=== PATIENT | male | born 1960 | race Caucasian/White ===

== ENCOUNTER 2023-01-03 18:43 | Emergency (ER) | payer OTHER, SELFPAY ==
[2023-01-03] VITALS (11 sets, daily range): BP systolic 144–164; BP diastolic 84–98; PULSE 77–108; RESP 16–27; TEMP 36.6–36.8; O2SAT 92–100
--- NOTE | ~2023-01-03 | XR_ITS ---
EXAMINATION: XR chest 2V DATE: 01/03/2023 19:23 INDICATION: Chest pain radiating to the back and neck. TECHNIQUE: Frontal and lateral views of the chest were obtained. COMPARISON: None. FINDINGS: There is no pneumonia, pleural effusion, or pneumothorax. The heart size is normal. IMPRESSION: 1. No acute cardiopulmonary disease. Reviewed, dictated and finalized at location E.
--- NOTE | 2023-01-03 18:50 | ECG_ITS ---
Measurements Intervals [place] Rate: 108 P: 33 [place]: 190 QRS: -18 QRSD: 108 T: 29 QT: 344 QTc: 463 Interpretive Statements SINUS TACHYCARDIA CONSIDER INFERIOR INFARCT, AGE INDETERMINATE ABNORMAL ECG NO PREVIOUS ECG AVAILABLE FOR COMPARISON Electronically Signed On 01-03-2023 19:44:28 CDT by Rhys Massey D.O.
[2023-01-03] MEDS: ASPIRIN 81 MG CHEWABLE TABLET 324 MG PO (18:56)
[2023-01-03 19:12] LABS: Basophils Absolute Auto 0.1 K/mm3 (0.0-0.1); Basophils Percent Auto 0.8 % (0.2-1.2); Eosinophils Absolute Auto 0.3 K/mm3 (0-0.3); Eosinophils Percent Auto 4.2 % (0-4.4); Hematocrit 42.4 % (42.0-52.0); Hemoglobin 14.5 g/dL (14.0-18.0); Immature Granulocyte Absolute 0.01 K/mm3 (0.00-0.031); Immature Granulocyte Percent A 0.2 % (0-0.5); Lymphocytes Absolute Auto 1.49 K/mm3 (0.9-3.2); Lymphocytes Percent Auto 23.1 % (18.3-44.2); Mean Corpuscular HGB Conc 34.2 g/dl (32-36); Mean Corpuscular Hemoglobin 30.6 pg (26-34); Mean Corpuscular Volume 89.5 fl (80-100); Mean Platelet Volume 11.5 fl (7.4-10.4); Monocytes Absolute Auto 0.5 K/mm3 (0.1-0.6); Monocytes Percent Auto 7.6 % (2.6-8.5); Neutrophils Absolute Auto 4.1 K/mm3 (1.3-6.7); Neutrophils Percent Auto 64.1 % (45.5-73.1); Platelet Count Result 176 k/mm3 (150-375); Red Blood Count 4.74 M/mm3 (4.6-6.20); Red Cell Distribution Width 12.8 % (11.5-14.5); White Blood Count 6.4 K/mm3 (4.5-10.0)
[2023-01-03 19:19] LABS: INR 0.9; Prothrombin Time 12.5 Seconds (11.1-14.7)
[2023-01-03 19:20] LABS: Alanine Aminotransferase 22 U/L (6-50); Albumin Level 4.1 g/dL (3.5-5.1); Alkaline Phosphatase 73 U/L (38-126); Anion Gap 13 mmol/L (8-16); Aspartate Amino Transferase 27 U/L (17-59); Bilirubin,Total 0.4 mg/dL (0.2-1.3); Blood Urea Nitrogen 11 mg/dL (9-20); Calcium 9.1 mg/dL (8.4-10.2); Carbon Dioxide 21 mmol/L (22-30); Chloride 102 mmol/L (98-107); Estimated CRCL calculation 101 ml/min; Estimated Glomerular Filt Rate > 60; Glucose 176 mg/dL (65-110); Lipase 132 U/L (23-300); Potassium 3.8 mmol/L (3.4-5.0); Sodium 136 mmol/L (137-145)
[2023-01-03 19:21] LABS: Partial Thromboplastin Time 25.3 SECONDS (22.3-36.8)
[2023-01-03 19:31] LABS: Troponin I < 0.012 ng/mL (0.000-0.034)
[2023-01-03 22:10] LABS: Troponin I < 0.012 ng/mL (0.000-0.034)
[2023-01-03] MEDS: HYDROcodone/acetaminophen (*CRX) 5-325 MG TABLET 2 TAB PO (22:16)
[2023-01-03] MEDS: MAG HYDROX/AL HYDROX/SIMETH 30 ML UDC PO (22:17)
[2023-01-03] MEDS: methocarbamoL 750 MG TABLET 1500 MG PO (22:17)
--- NOTE | 2023-01-03 23:07 | ED.GENADULT ---
HPI - General Adult General Chief complaint: Chest Pain Stated complaint: SOB Time Seen by Provider: 01/03/23 21:04 History of Present Illness HPI narrative: This is a 62-year-old male presenting with the ED with a chief complaint of burning chest pain. He says that it started a couple days ago. It is nonradiating, 3 out 10 intensity and comes and goes. It is associated with belching. No exacerbating alleviating factors. Patient also has pain along his entire back which he states is chronic. Patient denies shortness of breath, nausea vomiting diarrhea, fever or chills. Related Data Allergies Allergy/AdvReac Type Severity Reaction Status Date / Time No Known Allergies Allergy Verified 01/03/23 18:56 PMF Past Medical History Medical History Chronic pain Diabetes Hypertension Sciatica Exam Narrative: APPEARANCE: No apparent distress. Head: atraumatic. EYES: EOMI, NOSE: Atraumatic NECK: Trachea midline RESPIRATORY: No increased rate of breathing , clear to auscultation CARDIOVASCULAR: RRR, +2 pulses in all extremities, no peripheral edema ABDOMINAL: obese but soft nontender no guarding or rebound MUSCULOSKELETAl: No obvious deformities NEURO: Alert. Moving 4/4 extremities SKIN:: Warm, dry. Normal color PSYCHIATRIC: Normal affect Course Vital Signs Vital signs: Vital Signs Temperature 97.9 F 01/03/23 18:57 Pulse Rate 108 H 01/03/23 18:57 Respiratory Rate 18 01/03/23 18:57 Blood Pressure 164/88 H 01/03/23 18:57 Pulse Oximetry 98 01/03/23 18:57 Oxygen Delivery Room Air 01/03/23 18:57 Temperature 97.9 F 01/03/23 18:57 Pulse Rate 92 01/03/23 22:30 Respiratory Rate 20 01/03/23 22:30 Blood Pressure 144/98 H 01/03/23 21:16 Pulse Oximetry 97 01/03/23 22:30 Oxygen Delivery Room Air 01/03/23 18:57 Medical Decision Making [facility] Narrative Medical decision making narrative: -Course: 62-year-old presenting with burning chest pain associated with belching. Patient was given Maalox and pain medication for his chronic pain. lab work chest x-ray and EKG were unremarkable. Patient pain was improved and he is requesting muscle relaxers and to be discharged. vital signs stable and well-appearing. Patient states he will follow up with primary care physician Discharged with return precautions. 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 Troponins negative x2. Chest x-ray normal. Independent EKG interpretation: Rhythm [sinus], Rate [108], [place] -[normal], [place] -[normal], QRS [narrow], QTC [normal], T waves -[negative for concerning inversions], ST Segments - [Negative for concerning elevations] Final interpretations: sinus tachycardia -Interventions: Maalox, [place] 5 mg x 2, aspirin 324 mg -Shared decision making / Disposition: discharged -RX Robaxin 1500 mg Vital Signs Vital Signs: Vital Signs Temperature 97.9 F 01/03/23 18:57 Pulse Rate 108 H 01/03/23 18:57 Respiratory Rate 18 01/03/23 18:57 Blood Pressure 164/88 H 01/03/23 18:57 Pulse Oximetry 98 01/03/23 18:57 Oxygen Delivery Room Air 01/03/23 18:57 Temperature 97.9 F 01/03/23 18:57 Pulse Rate 92 01/03/23 22:30 Respiratory Rate 20 01/03/23 22:30 Blood Pressure 144/98 H 01/03/23 21:16 Pulse Oximetry 97 01/03/23 22:30 Oxygen Delivery Room Air 01/03/23 18:57 Lab Data 01/03/23 18:58 01/03/23 18:58 Labs: Lab Results 01/03/23 01/03/23 Range/Units 18:58 21:45 WBC 6.4 (4.5-10.0) K/mm3 RBC 4.74 (4.6-6.20) M/mm3 Hgb 14.5 (14.0-18.0) g/dL Hct 42.4 (42.0-52.0) % MCV 89.5 (80-100)
== END 2023-01-03 23:23 | disposition home or self-care (01) ==
PROVIDERS: Emergency Medicine; Emergency Provider Emergency Medicine
DX: R07.89 Other chest pain (principal); G89.29 Other chronic pain; M54.9 Dorsalgia, unspecified; E11.9 Type 2 diabetes mellitus without complications; I10 Essential (primary) hypertension; R00.0 Tachycardia, unspecified; R94.31 Abnormal electrocardiogram [ECG] [EKG]
CPT/HCPCS: 36415; 71046; 80053; 83690; 84484; 85025; 85610; 85730; 93005; 99284; A9270